=== PATIENT | male | born 1960 | race Caucasian/White ===

== ENCOUNTER → 2017-01-30 | Day surgery (SDC) | payer BC ==
[~2017-01-30] MED LIST: CRESTOR10 MG PO; ELIQUIS2.5 MG PO; LISINOPRIL40 MG PO; MELOXICAM15 MG PO; NORVASC 5 MG TAB5 MG PO; OMEPRAZOLE20 M1 PO; OXYBUTYNIN CHLOR5 MG PO; PERCOCET 10-321 EACH PO
[2017-01-30 08:49] LABS: HEMOGLOBIN 15.4 gm/dl (14.0-17.5); RED BLOOD COUNT 5.01 M/UL (4.20-5.50); WHITE BLOOD COUNT 7.5 K/UL (4.5-11.0)
== END | disposition home or self-care (01) ==
LOC: OPSV2 07:45
PROVIDERS: Orthopaedic Surgery
DX: M17.11 Unilateral primary osteoarthritis, right knee (principal); I10 Essential (primary) hypertension; Z79.899 Other long term (current) drug therapy
CPT/HCPCS: 80048; 81001; 85025; 87081; 93005

== ENCOUNTER → 2017-02-05 | Outpatient (CLI) | payer BC | LOC: LAB 14:04 | DX: Z01.812 Encounter for preprocedural laboratory examination (principal); M19.90 Unspecified osteoarthritis, unspecified site; I10 Essential (primary) hypertension | CPT/HCPCS: 36415; 80051; 82565; 84520; 86850; 86900; 86901 ==

== ENCOUNTER 2017-02-06 06:38 | Day surgery (SDC) | payer BC ==
[~2017-02-06] VITALS: Ht 188 cm; Wt 117.9 kg
[2017-02-06] MEDS ORDERED: MELOXICAM15 MG PO (07:30)
[2017-02-06] MEDS ORDERED: NORVASC 5 MG TAB5 MG PO (07:31)
[2017-02-06] MEDS ORDERED: CRESTOR10 MG PO (07:32)
[2017-02-06] MEDS ORDERED: OXYBUTYNIN CHLOR5 MG PO (07:32)
[2017-02-06] MEDS ORDERED: OMEPRAZOLE20 M1 PO (07:32)
[2017-02-06] MEDS ORDERED: LISINOPRIL40 MG PO (07:33)
[2017-02-06 15:48] LABS: BUN/CREATININE RATIO 20 (0-10)
[2017-02-07 05:29] LABS: HEMOGLOBIN 13.5 gm/dl (14.0-17.5); RED BLOOD COUNT 4.53 M/UL (4.20-5.50); WHITE BLOOD COUNT 10.9 K/UL (4.5-11.0)
[2017-02-07 05:47] LABS: BUN/CREATININE RATIO 11 (0-10)
[2017-02-07] MEDS ORDERED: ELIQUIS2.5 MG PO (14:45)
[2017-02-07] MEDS ORDERED: PERCOCET 10-321 EACH PO (14:47)
== END 2017-02-07 15:45 | disposition home or self-care (01) ==
LOC: OR 06:38 → EDSTATUS 10:15 → M/S 13:15 → OR 02-07 15:45
PROVIDERS: Orthopaedic Surgery; Physician Assistant
PROC: 0SRC0L9 Replacement of Right Knee Joint with Medial Unicondylar Synthetic Substitute, Cemented, Open Approach (ICD-10-PCS; principal; 2017-02-06 10:15)
DX: M17.11 Unilateral primary osteoarthritis, right knee (principal); I10 Essential (primary) hypertension; E78.5 Hyperlipidemia, unspecified; K21.9 Gastro-esophageal reflux disease without esophagitis; E66.9 Obesity, unspecified; Z79.899 Other long term (current) drug therapy
CPT/HCPCS: 36415; 73560; 80048; 85025; 97110; 97116; 97535; C1713; C1776; J0690; J1200; J2250; J2270; J2405; J2795; J3010; J7030; J7120

== ENCOUNTER → 2022-03-11 | Outpatient (CLI) | payer BC | LOC: HEART 5 11:28 | DX: R06.02 Shortness of breath (principal); J45.30 Mild persistent asthma, uncomplicated; U09.9 Post COVID-19 condition, unspecified | CPT/HCPCS: 71046; 94010; 94729; 95012 ==

== ENCOUNTER → 2022-04-07 | Outpatient (CLI) | payer BC | LOC: SLEEP 14:17 | DX: G47.33 Obstructive sleep apnea (adult) (pediatric) (principal) | CPT/HCPCS: 95810 ==